=== PATIENT | male | born 1970 | race Caucasian/White ===

== ENCOUNTER 2020-01-21 16:56 | Emergency (ER) | payer MEDICARE, MEDICAID ==
[~2020-01-21] VITALS: Ht 162.6 cm; Wt 79.1 kg
--- NOTE | 2020-01-21 18:07 | NUR ---
To CT scan
[2020-01-21 18:36] VITALS: BP 180/84
== END 2020-01-21 18:38 | disposition home or self-care (01) ==
LOC: ER 16:57
DX: S06.0X0A Concussion without loss of consciousness, initial encounter (principal); S01.91XA Laceration without foreign body of unspecified part of head, initial encounter; W01.0XXA Fall on same level from slipping, tripping and stumbling without subsequent striking against object, initial encounter; Y93.89 Activity, other specified; Y92.89 Other specified places as the place of occurrence of the external cause; Y99.8 Other external cause status
CPT/HCPCS: 70450; 99284